=== PATIENT | male | born 1960 ===

== ENCOUNTER 2021-03-24 21:45 | Emergency (ER) | payer MEDICAID ==
[~2021-03-24] VITALS: Ht 172.7 cm; Wt 90.0 kg
[2021-03-24 21:51] VITALS: BP 142/110
[2021-03-24] MEDS ORDERED: LIDOCAINE-MPF 1%, 5ML ONE (21:56)
--- NOTE | 2021-03-24 22:04 | NUR ---
REPORT FROM IRINA TROY
[2021-03-24] MEDS ORDERED: LIDOCAINE 2%, 20ML SQ ONE (22:30)
[2021-03-24] MEDS ORDERED: BACITRACIN ZINC OINT 500U/GM, 0.9 GM ONE (22:37)
[2021-03-24] MEDS ORDERED: NEOSPORIN OINT. PKT 1 PACKET ONE (22:44)
--- NOTE | 2021-03-24 22:56 | NUR ---
Patient given discharge instructions and they have confirmed that they understand the instructions. Patient ambulatory with steady gait. NAD, all questions answered appropriately, denies additional needs at this time. No personal belongings left in room after discharge.
== END 2021-03-24 22:57 | disposition home or self-care (01) ==
LOC: ED 22:00
DX: S61.214A Laceration without foreign body of right ring finger without damage to nail, initial encounter (principal); S61.216A Laceration without foreign body of right little finger without damage to nail, initial encounter; F10.120 Alcohol abuse with intoxication, uncomplicated; Y90.0 Blood alcohol level of less than 20 mg/100 ml; Z21 Asymptomatic human immunodeficiency virus [HIV] infection status; W25.XXXA Contact with sharp glass, initial encounter; Y93.89 Activity, other specified; Y92.89 Other specified places as the place of occurrence of the external cause; Y99.8 Other external cause status
CPT/HCPCS: 12041; 36415; 86317; 86705; 86803; 87340; 87806; 99284; 99285; G0475